=== PATIENT | female | born 1985 | race Caucasian/White ===

== ENCOUNTER 2021-05-11 17:46 | Emergency (ER) | payer OTHER ==
[~2021-05-11] VITALS: Ht 162.6 cm; Wt 64.8 kg
--- NOTE | 2021-05-11 20:29 | PHYS DOC ---
Past History Additional Past Medical Histor: miscarriage, "fertility issues" (MARTY LARA) Additional Past Surgical Histo: D&C (MARTY LARA) Smoking: Non-smoker Alcohol Use: None Drug Use: None (MARTY LARA) General Adult EDM: Chief Complaint: OTHER COMPLAINTS HPI: HPI: Patient is a 35 year old A3 female who presents for repeat serum beta-hCG. Patient was seen 2 days ago and was constant for abdominal pain while . She had a scant amount of bleeding at that time. Patient now has 0 symptoms or complaints, however was instructed to get a repeat beta-hCG drawn within 48 hours. Patient contacted her watch crystal grinder, but they were unavailable for an appointment for at least 2 weeks. During that visit, her beta hCG was found to be around 630. She also had an ultrasound performed to rule out ectopic . Patient is eager to find out if the beta-hCG levels are going up or down, as she has had 3 miscarriages in the past. Patient reports that both she and her have "fertility issues," and that she has had a full work-up and conversations about possibilities and reasons for recurrent miscarriage. (MARTY LARA) Review of Systems: Review of Systems: ROS negative or noncontributory except as mentioned in HPI. (MARTY LARA) Allergies: Allergies: Allergies Coded Allergies Type Severity Reaction Last Updated Verified No Known Drug Allergies 05/11/21 No (MARTY LARA) Physical Exam: PE: Constitutional: Well developed, well nourished, no acute distress, non-toxic appearance. HENT: Normocephalic, atraumatic, bilateral external ears normal, nose normal. Eyes: EOMI, conjunctiva normal, no discharge. Neck: Normal range of motion, no stridor. Abdomen: Soft, no tenderness, no masses, no pulsatile masses. Skin: Warm, dry, no erythema, no rash. Extremities: No cyanosis, no clubbing, ROM intact, no edema. Neurologic: Alert and oriented x4, steady and symmetrical upright gait, no focal deficits noted. Pelvic exam deferred by patient. (MARTY LARA) Current Patient Data: Labs: Laboratory Tests Test 05/11/21 19:33 Maternal Serum HCG Beta Subunit 138 mIU/mL (0-6) H (MARTY LARA) Heart Score: C/O Chest Pain: No (MARTY LARA) Course & Med Decision Making: Course & Med Decision Making Pertinent Labs and Imaging studies reviewed. (See chart for details) (MARTY LARA) Course & Med Decision Making Did not see or evaluate patient. Did not discuss patient with PA. Generally agree with PAs work-up and disposition per note (PAULINA FUENTES MD) Dragon Disclaimer: Dragon Disclaimer: This electronic medical record was generated, in whole or in part, using a voice recognition dictation system. (MARTY LARA) Departure Departure: Impression: Primary Impression: Inevitable complete miscarriage without complication Disposition: HOME / SELF CARE / HOMELESS Condition: STABLE Referrals: NON,STAFF (PCP) YONNY GIRON MD Patient Instructions: Miscarriage, [id number] Additional Instructions: EMERGENCY DEPARTMENT GENERAL DISCHARGE INSTRUCTIONS Thank you for coming to [facility] (ED) today and trusting us with you care. We trust that you had a positive experience in our Emergency Department. If you wish to speak to the department management, you may call the director at [phone]. YOUR FOLLOW UP INSTRUCTIONS ARE FOLLOWS: 1. Follow up with your primary care doctor. If you do not have a primary doctor, please ask for a resource list of physicians or clinics that may be able to assist you with follow up care. 2. The emergency provider has interpreted your imaging studies, if any were ordered. The radiology imaging engineer also reviewed them. If there is a change in the findings, you will be notified in 48 hours when at all possible. 3. If a lab test or culture has been done, your results will be reviewed and yo u will be notified if you need a change in treatment. 4. Follow instructions verbalized to you and refer to the printouts if needed. ADDITIONAL INSTRUCTIONS AND INFORMATION: 1. Your care today has been supervised by a physician who is specially trained in emergency care. Many problems require more than one evaluation for a complete diagnosis and treatment. We recommend that you schedule your follow up appointment as recommended to ensure complete treatment of you illness or injury. If you are unable to obtain follow up care and continue to have a problem, or if your condition worsens, we recommend that you return to the ED. 2. We are not able to safely determine your condition over the phone nor are we able to give sound medical advice over the phone. For these safety reasons, if you call for medical advice we will ask you to come to the ED for further evaluation. 3. If you have any questions regarding these discharge instructions please call the ED at [phone]. SAFETY INFORMATION: In the interest of safety, wellness, and injury prevention; we encourage you to wear your seat belt, if you smoke; quite smoking, and we encourage family to use a protective helmet for bicycling and other sporting events that present an increased risk for head injury. IF YOUR SYMPTOMS WORSEN OR NEW SYMPTOMS DEVELOP, OR YOU HAVE CONCERNS ABOUT YOUR CONDITION; OR IF YOUR CONDITION WORSENS WHILE YOU ARE WAITING FOR YOUR FOLLOW UP APPOINTMENT; EITHER CONTACT YOUR PRIMARY CARE DOCTOR, THE PHYSICIAN WHOSE NAME AND NUMBER YOU WERE GIVEN, OR RETURN TO THE ED IMMEDIATELY. MARTY LARA May 11, 2021 20:29 PAULINA FUENTES MD May 11, 2021 22:26
[2021-05-11 20:30] VITALS: BP 108/79
== END 2021-05-11 20:35 | disposition home or self-care (01) ==
LOC: ER 17:46
DX: O03.9 Complete or unspecified spontaneous abortion without complication (principal)
CPT/HCPCS: 36415; 84702; 99283